=== PATIENT | male | born 1955 | race Caucasian/White ===

== ENCOUNTER 2018-04-13 16:33 | Emergency (ER) | payer OTHER ==
[~2018-04-13] VITALS: Ht 180.3 cm; Wt 78.5 kg
[2018-04-13] MEDS ORDERED: predniSONE 10 MG TABLET PO ONE (17:00)
[2018-04-13] MEDS ORDERED: diphenhydrAMINE HCL 50 MG CAPSULE PO ONE (17:00)
[2018-04-13] MEDS ORDERED: ALBUTEROL FS 2.5 MG/3 ML VIAL.NEB NEB ONE (17:00)
[2018-04-13] MEDS ORDERED: FAMOTIDINE (20 MG) 20 MG TABLET PO ONE (17:00)
[2018-04-13] MEDS ORDERED: diphenhydrAMINE HCL 25 MG CAPSULE ONE (17:05)
[2018-04-13] MEDS ORDERED: FAMOTIDINE (20 MG) 20 MG TABLET ONE (17:05)
[2018-04-13] MEDS ORDERED: predniSONE 20 MG TABLET ONE (17:05)
[2018-04-13] MEDS ORDERED: ALBUTEROL FS 2.5 MG/3 ML VIAL.NEB ONE (17:12)
--- NOTE | 2018-04-13 17:26 | NUR ---
C/O SOB D/T ALLERGIC REACTION TO CHEMICAL EXPOSURE TO CHLORINE. PT AAOX4, VSS. DENIES CP, DIZZINESS, N/V @ THIS TIME. PT SEEN & EVAL'D BY ALEISHA MARIA. MEDICATED FOR ALLERGIC REACTION, GETTING BREATHING TX & ELIZABETH WELL. FRIENDS @ BS & WILL CONT TO MONITOR.
[2018-04-13] MEDS ORDERED: IV NS 0.9% 1,000 ML BAG IV ONE (17:30)
--- NOTE | 2018-04-13 18:18 | NUR ---
Patient discharged to home in stable condition. Written and verbal after care instructions given. Patient verbalizes understanding of instruction.IV removed. Catheter intact and site benign. Pressure and 4x4 applied to site. No bleeding noted.
[2018-04-13 18:19] VITALS: BP 124/74
== END 2018-04-13 18:19 | disposition home or self-care (01) ==
LOC: ER 16:36
DX: T78.49XA Other allergy, initial encounter (principal); L50.9 Urticaria, unspecified; Z98.890 Other specified postprocedural states; X58.XXXA Exposure to other specified factors, initial encounter
CPT/HCPCS: J7030; Q0163

== ENCOUNTER 2022-05-05 12:10 | Emergency (ER) | payer OTHER ==
[~2022-05-05] VITALS: Ht 180.3 cm; Wt 77.1 kg
[2022-05-05 12:10] VITALS: BP 116/67
--- NOTE | 2022-05-05 12:10 | NUR ---
DOM C/O HAVING AN EYE FLOATER IN HIS EYE YESTERDAY, LAST NIGHT STATED HE HAD FLASHES, AND TODAY HE HAS MORE FLOATERS IN HIS EYE
--- NOTE | 2022-05-05 12:26 | NUR ---
DR. Singh at bedside
--- NOTE | 2022-05-05 12:37 | NUR ---
Patient discharged to home in stable condition. Written and verbal after care instructions given. Patient verbalizes understanding of instruction.
--- NOTE | 2022-05-05 12:38 | NUR ---
Patient discharged to home in stable condition. Written and verbal after care instructions given. Patient verbalizes understanding of instruction.
== END 2022-05-05 12:39 | disposition home or self-care (01) ==
LOC: ER 12:11
DX: H43.391 Other vitreous opacities, right eye (principal); Z98.890 Other specified postprocedural states